=== PATIENT | male | born 2000 | race Caucasian/White ===

== ENCOUNTER 2023-10-02 14:58 | Emergency (ER) | payer OTHER ==
[2023-10-02 15:03] VITALS: BP 172/90; PULSE 90; RESP 18; TEMP 98; BMI 18.2
[2023-10-02] MEDS ORDERED: ASPIRIN 81 MG CHEWABLE TABLETS ONE (17:36)
[2023-10-02] MEDS: ASPIRIN 81 MG CHEWABLE TABLETS PO ONE (17:46)
[2023-10-02 18:03] LABS: BASO % 0.4 % (0-2.0); EOS % 0.4 % (0-4.5); HEMATOCRIT 47.8 % (35.4-49); LYMPH % 22.9 % (8-40); MCH 31.8 pg (25.7-33.7); MCHC 35.6 g/dl (32.0-35.9); MEAN CELL VOLUME 89.3 fl (80-96); MEAN PLT VOLUME 9.1 fl (7.5-11.1); NEUT % 70.3 % (42.8-82.8); PLATELET COUNT 280 10^3/uL (134-434); RBC 5.35 M/mm3 (4.00-5.60); WHITE BLOOD COUNT 8.2 K/mm3 (4.0-10.0)
[2023-10-02 18:33] LABS: POTASSIUM 3.6 mmol/L (3.5-5.1)
[2023-10-02 18:34] LABS: CALCIUM 9.6 mg/dL (8.5-10.1)
[2023-10-02 18:35] LABS: ALBUMIN 4.6 g/dl (3.4-5.0); BLOOD UREA NITROGEN 15.6 mg/dL (7-18); MAGNESIUM 2.3 mg/dL (1.8-2.4)
[2023-10-02 18:38] LABS: CREATININE 1.3 mg/dL (0.55-1.3)
[2023-10-02 18:40] LABS: TOT PROT 8.3 g/dl (6.4-8.2)
== END 2023-10-02 19:00 | disposition home or self-care (01) ==
LOC: JER 14:58
DX: I49.3 Ventricular premature depolarization (principal); R00.2 Palpitations; R42 Dizziness and giddiness
CPT/HCPCS: 36415; 71046-TC-FY; 80053; 83735; 84484; 85025; 85379; 93005; 93010; 99285-25